=== PATIENT | female | born 2005 | race Caucasian/White ===

== ENCOUNTER 2025-01-19 15:41 | Emergency (ER) | payer OTHER ==
[2025-01-19] MEDS ORDERED: Lidocaine 1% (PF) 30 ML VIAL ONE (16:10)
== END 2025-01-19 17:06 | disposition home or self-care (01) ==
LOC: NAV ERS 15:41
DX: S81.851A Open bite, right lower leg, initial encounter (principal); S81.051A Open bite, right knee, initial encounter; W54.0XXA Bitten by dog, initial encounter
CPT/HCPCS: 12002; 99283